=== PATIENT | female | born 1990 | race Hispanic/Latino ===

== ENCOUNTER 2018-03-30 06:20 | Emergency (ER) | payer OTHER, SELFPAY ==
[2018-03-30 06:33] VITALS: BP 109/65; PULSE 60; RESP 18; TEMP 36.6; O2SAT 97; BMI 23.0
--- NOTE | 2018-03-30 06:33 | DI.RAD.S_ITS ---
PROCEDURE: XR CHEST 2V INDICATIONS: persistent cough TECHNIQUE: 2 views of the chest were acquired. COMPARISON: [facility], , CHEST 1 VIEW, 10/06/2017, 10:55. [facility], , CHEST 2 VIEW, 12/24/2017, 10:33. FINDINGS: Surgical changes and devices: None. Lungs and pleura: No pleural effusions or pneumothorax. Lungs are clear. Mediastinum: Mediastinal contours are normal. Heart size is normal. Bones and chest wall: No suspicious bony abnormalities. Soft tissues appear unremarkable. IMPRESSION: No acute cardiopulmonary disease. Dictated by: Kira Lezama M.D. on 03/30/2018 at 7:41 Approved by: Kira Lezama M.D. on 03/30/2018 at 7:42
--- NOTE | 2018-03-31 22:15 | ED_ITS ---
HPI - URI/Sore Throat General Chief Complaint: Upper Respiratory Symptoms Stated Complaint: Coughing 2 weeks, awoke gasping for air Time Seen by Provider: 03/30/18 06:33 Source: patient Mode of arrival: ambulatory Limitations: no limitations History of Present Illness HPI Narrative: patient presents to the emergency department today with a chief complaint of a persistent cough for the past few weeks. She states that started soon after she started beeping and has been persistent ever since. She denies runny nose, sore throat or fever. She is not dizzy nor weak or lightheaded. MD Complaint: cough Onset (ago): week(s) Duration: constant Severity: moderate Relieving factors: nothing Exacerbating factors: nothing Description of mucous: clear Able to tolerate fluids by mouth: Yes Related Data Home Medications Medication Instructions Recorded Confirmed duloxetine [Cymbalta] 90 mg PO QDAY #0 02/17/17 ibuprofen 400 mg PO TID #0 12/24/17 Previous Rx's Medication Instructions Recorded metronidazole 500 mg PO Q12H #14 tab 01/11/18 nitrofurantoin monohyd/m-cryst 100 mg PO BID #14 cap 01/11/18 [Macrobid] albuterol sulfate 2 puff INHALATION Q4H PRN #1 each 03/30/18 azithromycin See Label Instructions .ROUTE 03/30/18 .COMPLEX #6 tab benzonatate [Tessalon Perles] 100 mg PO Q6H PRN #20 cap 03/30/18 prednisone 20 mg PO DAILY #5 tab 03/30/18 Allergies Allergy/AdvReac Type Severity Reaction Status Date / Time Penicillins [PENICILLINS] Allergy Unknown Verified 03/30/18 06:40 Review of Systems Review of Systems All systems reviewed & are unremarkable except as noted in HPI and below Constitutional Denies chills, Denies fever(s), Denies lethargy and Denies weakness ENT Ears, Nose, Mouth, and Throat: Denies change in voice, Denies neck pain and Denies sore throat Cardiovascular Denies dyspnea and Denies dyspnea on exertion Respiratory Reports cough, Denies dyspnea, Denies dyspnea on exertion and Reports wheezing Gastrointestinal Gastrointestinal: Denies abdominal pain, Denies change in bowel habits, Denies diarrhea, Denies nausea and Denies vomiting Musculoskeletal Denies neck pain Neurologic Denies confusion and Denies weakness Psychiatric Denies anxiety, Denies confusion, Denies depression, Denies homicidal ideation and Denies suicidal ideation Hematologic/Lymphatic Denies easy bruising Allergic/Immunologic Reports wheezing PFSH Social History Smoking Status: Current some day smoker Exam Initial Vital Signs Initial Vital Signs: Vital Signs Temperature 97.9 F 03/30/18 06:33 Pulse Rate 60 03/30/18 06:33 Respiratory Rate 18 03/30/18 06:33 Blood Pressure 109/65 03/30/18 06:33 Pulse Oximetry 97 03/30/18 06:33 Const General: cooperative and well developed Nutritional Appearance: well nourished Orientation: alert, awake, oriented x3 and not confused HENMT Head: normocephalic and atraumatic Ears: external ears normal and TM's normal bilaterally Nose: external nose normal and No nasal discharge Face and sinus: sinuses nontender, face symmetric, no sinus tenderness and No dry mucous membranes Mouth: oral mucosae normal and moist mucous membranes Teeth and gingiva: dentition normal Throat: tonsils normal and uvula midline Eyes General: appearance normal, both eyes and all related structures Eyelids: eyelids normal Conjunctivae: conjunctivae normal Sclera: sclerae normal Pupils: PERRL EOM: EOM intact bilaterally Neck Neck: normal visual inspection, trachea midline, No lymphadenopathy, No midline deformity and No JVD Lymphatic: No lymphedema Resp Effort & Inspection: normal respiratory effort, able to speak in complete sentences, no respiratory distress and no use of accessory muscles Auscultation: clear to auscultation bilaterally, no rales, no rhonchi and no wheezes Cardio Rate: regular rate Rhythm: regular rhythm Heart Sounds: no click, no gallops, no murmurs and no rubs Pulses: normal peripheral pulses GI Inspection: non-distended Palpation: soft, no hepatosplenomegaly, No guarding, No pulsatile mass and No tender Auscultation: normal bowel sounds Course Orders Ordered: ED Orders 03/30/18 06:33 XR chest 2V Stat Discharge Plan Departure Patient Disposition: Home, Self-Care Clinical Impression: Atypical pneumonia Discharge Date/Time: 03/30/18 07:11 Interventions: ED Discharge Assessment Last Done: 03/30/18 07:11 Instructions: Atypical Pneumonia Prescriptions: New albuterol sulfate 90 mcg/actuation aerosol powdr breath activated 2 puff INHALATION Q4H PRN (Reason: shortness of breath or wheezing) Qty: 1 RF : 0 azithromycin 250 mg tablet See Label Instructions .ROUTE .COMPLEX Qty: 6 RF: 0 benzonatate [Tessalon Perles] 100 mg capsule 100 mg PO Q6H PRN (Reason: cough) Qty: 20 RF: 0 prednisone 20 mg tablet 20 mg PO DAILY Qty: 5 RF: 0 No Action duloxetine [Cymbalta] 30 MG capsule,delayed release(DR/EC) 90 mg PO QDAY Qty: 0 RF: 0 ibuprofen 400 MG tablet 400 mg PO TID Qty: 0 RF: 0 metronidazole 500 MG tablet 500 mg PO Q12H Qty: 14 RF: 0 nitrofurantoin monohyd/m-cryst [Macrobid] 100 MG capsule 100 mg PO BID Qty: 14 RF: 0 Stand Alone Forms: Work/School Restrictions
== END 2018-03-30 07:11 | disposition home or self-care (01) ==
PROVIDERS: Emergency Provider Emergency Medicine
DX: J18.9 Pneumonia, unspecified organism (principal)
CPT/HCPCS: 71046; 99282; 99283

== ENCOUNTER 2018-06-25 01:00 | Emergency (ER) | payer OTHER, SELFPAY ==
[2018-06-25 01:05] VITALS: BP 123/75; PULSE 93; RESP 16; TEMP 36.4; O2SAT 100
--- NOTE | 2018-06-25 01:14 | DI.RAD.S_ITS ---
PROCEDURE: XR LUMBAR SPINE 2-3V INDICATIONS: LBP after lifting and feeling a pop TECHNIQUE: 3 views of the lumbar spine were acquired. COMPARISON: None. FINDINGS: Bones: 5 [id number] vertebrae are present. There is minimal retrolisthesis at L2-L3, L3-L4, and L4-L5. Disc spaces appear preserved. No vertebral body compression fractures. No suspicious bony lesions. Soft tissues: Overlying bowel gas pattern is normal. No suspicious soft tissue calcifications. IMPRESSION: 1. No acute fracture identified. 2. Minimal multilevel retrolisthesis of indeterminate clinical significance. Dictated by: Tano Ojeda M.D. on 06/25/2018 at 11:38 Approved by: Tano Ojeda M.D. on 06/25/2018 at 11:39
--- NOTE | 2018-06-25 01:14 | ED_ITS ---
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 Patient states that she has had left-sided lower back pain for couple days now. She states that she was in the gym today doing lifts and when she stood up she has sudden onset of bilateral lower back pain and felt and heard ?a pop? has pain radiating down both of her legs to just above her knees. No bowel symptoms. No bladder symptoms. No incontinence. Feels like she empties her bladder. No saddle anesthesia. No fevers. Related Data Home Medications Medication Instructions Recorded Confirmed duloxetine [Cymbalta] 90 mg PO QDAY #0 02/17/17 ibuprofen 400 mg PO TID #0 12/24/17 Previous Rx's Medication Instructions Recorded metronidazole 500 mg PO Q12H #14 tab 01/11/18 nitrofurantoin monohyd/m-cryst 100 mg PO BID #14 cap 01/11/18 [Macrobid] albuterol sulfate 2 puff INHALATION Q4H PRN #1 each 03/30/18 azithromycin See Label Instructions .ROUTE 03/30/18 .COMPLEX #6 tab benzonatate [Tessalon Perles] 100 mg PO Q6H PRN #20 cap 03/30/18 prednisone 20 mg PO DAILY #5 tab 03/30/18 Allergies Allergy/AdvReac Type Severity Reaction Status Date / Time Penicillins [PENICILLINS] Allergy Unknown Verified 03/30/18 06:40 Review of Systems Constitutional Denies chills and Denies fever(s) Cardiovascular Denies chest pain and Denies dyspnea Respiratory Denies dyspnea Gastrointestinal Gastrointestinal: Denies cramping, Denies diarrhea, Denies nausea and Denies vomiting Genitourinary Denies urinary frequency, Denies difficulty voiding, Denies post void dribbling , Denies dysuria, Denies flank pain, Denies urinary incontinence, Denies urinary hesitancy and Denies urinary urgency Musculoskeletal Reports back pain, Denies myalgias and Reports arthralgias (Right ankle) Integumentary/Breasts Denies lesions and Denies rash Neurologic Denies sensory deficit Hematologic/Lymphatic Denies easy bleeding and Denies easy bruising [facility] Medical History Healthy adult (Acute) Surgical History No history of previous surgery (Acute) Social History Smoking Status: Current some day smoker Exam Initial Vital Signs Initial Vital Signs: Vital Signs Temperature 97.6 F 06/25/18 01:05 Pulse Rate 93 H 06/25/18 01:05 Respiratory Rate 16 06/25/18 01:05 Blood Pressure 123/75 H 06/25/18 01:05 Pulse Oximetry 100 06/25/18 01:05 Const General: cooperative, healthy appearing, comfortable, well developed, well groomed and No acute distress Orientation: alert, awake and oriented x3 Resp Effort & Inspection: normal respiratory effort Skin Lesions: no lesions Rashes: no rashes Neuro General: alert, awake and oriented x3 Cognition: normal cognition Speech: speech normal Gait: normal gait Motor: muscle tone normal throughout Sensory Exam: no sensory deficits noted Extrem General: normal to inspection and capillary refill normal Psych Appearance: grossly normal and well kempt Course Orders Ordered: ED Orders 06/25/18 01:14 XR lumbar spine 2-3V Stat Discontinued Medications Hydrocodone Bitart/Acetaminophen (Vicodin Prepack) 1 bottle MISC SEEINSTR ONE Stop: 06/25/18 02:00 Cyclobenzaprine HCl (Flexeril 10 Mg Prepack) 1 bottle MISC SEEINSTR ONE Stop: 06/25/18 02:00 Ketorolac Tromethamine (Toradol) 30 mg IM NOW ONE Stop: 06/25/18 01:25 Last Admin: 06/25/18 01:30 Dose: 30 mg Vital Signs - 8 hr 06/25/18 01:05 Temperature 97.6 F Pulse Rate 93 H Respiratory Rate 16 Blood Pressure 123/75 H Pulse Oximetry 100 MDM - Back Pain/Injury Imaging Data Lumbar spine x-ray: Attestation: I personally reviewed and interpreted this imaging study as follows: My impression: No fractures, no dislocations, no gross deformity [facility] Narrative Medical decision making narrative: No fracture seen on the x-ray. Patient is neurovascularly intact. No red flag symptoms concerning for cauda equina. History is not consistent with fracture. Will hold on further workup for now. Patient was given Toradol here in the emergency department. Feel this is most likely musculoskeletal. Patient was given return precautions. She expressed understanding and agreement with plan. Discharge Plan Departure Patient Disposition: Home Clinical Impression: Lower back pain Instructions: Back Pain (Alternative Therapy), DI for Back Pain With Sciatica, Activity May Be Better then Rest for Low Back Pain Recovery Activity Restrictions/Additional Instructions: Take all the medications as directed. Contact your medical department on Tuesday for any work-related restrictions. Follow-up with your medical department. Return to the emergency department for any new or worsening symptoms. Recommend that you take the Motrin/ibuprofen at home every 8 hr with food. Prescriptions: No Action duloxetine [Cymbalta] 30 MG capsule,delayed release(DR/EC) 90 mg PO QDAY Qty: 0 RF: 0 ibuprofen 400 MG tablet 400 mg PO TID Qty: 0 RF: 0 metronidazole 500 MG tablet 500 mg PO Q12H Qty: 14 RF: 0 nitrofurantoin monohyd/m-cryst [Macrobid] 100 MG capsule 100 mg PO BID Qty: 14 RF: 0 albuterol sulfate 90 mcg/actuation aerosol powdr breath activated 2 puff INHALATION Q4H PRN (Reason: shortness of breath or wheezing) Qty: 1 RF : 0 azithromycin 250 mg tablet See Label Instructions .ROUTE .COMPLEX Qty: 6 RF: 0 benzonatate [Tessalon Perles] 100 mg capsule 100 mg PO Q6H PRN (Reason: cough) Qty: 20 RF: 0 prednisone 20 mg tablet 20 mg PO DAILY Qty: 5 RF: 0
[2018-06-25] MEDS: KETOROLAC 60 MG/2 ML VIAL 30 MG IM (01:30)
[2018-06-25] MEDS: CYCLOBENZAPRINE 10 MG PREPACK 1 BOTTLE MISC (02:05)
[2018-06-25] MEDS: HYDROCODONE/ACET 5/325 PREPACK 1 BOTTLE MISC (02:05)
[2018-06-25 02:06] VITALS: BP 113/73; PULSE 83; RESP 18; TEMP 36.6; O2SAT 100
== END 2018-06-25 02:14 | disposition home or self-care (01) ==
PROVIDERS: Emergency Provider Emergency Medicine
DX: M54.5 Low back pain (principal)
CPT/HCPCS: 72100; 96372; 99282; 99283; J1885

== ENCOUNTER 2018-07-18 08:43 | Emergency (ER) | payer OTHER, SELFPAY ==
[2018-07-18 09:06] VITALS: BP 114/80; PULSE 110; RESP 13; TEMP 36.9; O2SAT 99
[2018-07-18 09:44] VITALS: BP 111/72; PULSE 107; RESP 18; TEMP 37.1; O2SAT 98
--- NOTE | 2018-07-18 10:03 | ED.SKABFB ---
HPI - Skin/Abscess/Foreign Bdy General Chief complaint: Skin/Abscess/Foreign Body Stated complaint: 'CELLULITIS IN LEFT LEG' Time Seen by Provider: 07/18/18 09:26 Source: patient Mode of arrival: ambulatory Limitations: no limitations History of Present Illness HPI narrative: Patient is a 28-year-old female who presents with a left foot and leg rash. She feels like she has had body aches since last evening. She noticed a rash on her foot this morning she is so intense pain all up and down her leg and in her calf. She denies any recent traveling no history of blood clots no significant swelling of her legs. She denies any pruritus, no bites. She feels like it is cellulitis her and get cellulitis frequently MD complaint: rash Related Data Home Medications Medication Instructions Recorded Confirmed ibuprofen 400 mg PO PRN PRN #0 12/24/17 07/18/18 Previous Rx's Medication Instructions Recorded albuterol sulfate 2 puff INHALATION Q4H PRN #1 each 03/30/18 sulfamethoxazole-trimethoprim 1 tab PO BID 5 Days #14 tab 07/18/18 [Bactrim DS] Allergies Allergy/AdvReac Type Severity Reaction Status Date / Time Penicillins [PENICILLINS] Allergy Unknown Verified 03/30/18 06:40 Review of Systems Review of Systems GENERAL: Denies chills, fatigue, malaise, fever, sweats, travel HEENT: Denies sinus pain, ear pain, sore throat, difficulty swallowing, neck pain RESPIRATORY: Denies dyspnea, cough, wheezing, hemoptysis, sputum. CARDIOVASCULAR: Denies chest pain, palpitations, orthopnea, edema GASTROINTESTINAL: Denies nausea, vomiting, abdominal pain, diarrhea, constipation, melena. : Denies dysuria, frequency, incontinence, hematuria, urinary retention, flank pain. MUSCULOSKELETAL: Denies weakness, joint pain, or bony pain SKIN: See HPI NEUROLOGIC: Denies weakness, dizziness, headache, numbness, change in speech, confusion PSYCHIATRIC: No concerning psychosocial issues. 12 point review of systems is negative except for those stated above and HPI [facility] Social History Smoking Status: Current some day smoker Exam Initial Vital Signs Initial Vital Signs: Vital Signs Temperature 98.4 F 07/18/18 09:06 Pulse Rate 110 H 07/18/18 09:06 Respiratory Rate 13 07/18/18 09:06 Blood Pressure 114/80 07/18/18 09:06 Pulse Oximetry 99 07/18/18 09:06 GENERAL: Well-appearing, well-nourished and in no acute distress. HEENT: Head atraumatic,EOMI, pupils reactive, neck is supple no meningeal signs CARDIOVASCULAR: Regular rate and rhythm without murmurs, rubs or gallops. RESPIRATORY: Breath sounds equal bilaterally, no wheezes rales or rhonchi. ABDOMEN: Soft, nontender. Normoactive bowel sounds all 4 quadrants. No guarding or rebound. EXTREMITIES: Normal range of motion, no clubbing or edema. Neurovascularly intact. Bilateral foot swelling equal. Left calf tenderness no significant calf swelling NEUROLOGICAL: Alert and oriented x4.Normal gait and speech. SKIN: Left foot has erythematous circular papules with may be some mild streaking up penitentiary this chin.. No vesicles no petechiae no abscesses Scores Wells' Criteria for DVT Active Cancer (Treatment within 6 months): No Bedridden recently >3 days or major surgery within 4 weeks: No Calf Swelling >3cm compared to other leg: No Collateral (nonvericose) superficial veins present: No Entire leg swollen: No Localized tenderness along the deep vein system: No Pitting edema, confined to symtomatic leg: No Paralysis, paresis, or recent plaster immobilization of ext: No Previously documented DVT: No Alternative dx to DVT as likely or more likely: No Wells' criteria for DVT: 0 Course Orders Ordered: ED Orders 07/18/18 10:00 Basic Metabolic Panel Stat Complete Blood Count AUTO DIFF Stat D Dimer Stat Lactate (Lactic Acid) Stat 07/18/18 10:22 Blood Culture Stat Discontinued Medications Sodium Chloride (Normal Saline 0.9%) 1,000 mls @ 1,000 mls/hr IV BOLUS ONE Stop: 07/18/18 10:53 Last Infusion: 07/18/18 10:58 Dose: 0 mls/hr Admin: 07/18/18 10:05 Dose: 1,000 mls/hr Ketorolac Tromethamine (Toradol) 30 mg IV NOW ONE Stop: 07/18/18 09:56 Last Admin: 07/18/18 10:05 Dose: 30 mg Vital Signs - 8 hr 07/18/18 09:06 07/18/18 09:44 07/18/18 10:37 Temperature 98.4 F 98.8 F Pulse Rate 110 H 107 H 94 H Respiratory Rate 13 18 12 Blood Pressure 114/80 Blood Pressure [Left Arm] 111/72 117/72 Pulse Oximetry 99 98 98 MDM - Skin/Abscess/Foreign Bdy Lab Data Attestation: I reviewed the patient's lab results. Result diagrams: 07/18/18 10:00 07/18/18 10:00 Lab Results 07/18/18 07/18/18 07/18/18 Range/Units 10:00 10:00 10:00 WBC 9.9 (4.5-11.0) X10^3/uL RBC 4.54 (4.0-5.2) X10^6/uL Hgb 12.6 (12.0-16.0) g/dL Hct 36.8 (36-46) % MCV 81.1 (80-100) fL MCH 27.7 (26-34) PG MCHC 34.1 (30-36) % RDW 13.2 (11.6-14.8) % Plt Count 186 (150-400) X10^3/uL Neut % (Auto) 84.9 H (50-75) % Lymph % (Auto) 7.5 L (25-40) % [place] % (Auto) 6.8 (3-14) % Eos % (Auto) 0.5 L (2-4) % Baso % (Auto) 0.3 (0-2) % Neut # (Auto) 8400 H (8421-7778) /uL D-Dimer < 200 (<230) ng/mL Sodium 142 (137-145) mmol/L Potassium 3.8 (3.4-5.1) mmol/L Chloride 107 (98-107) mmol/L Carbon Dioxide 25 (22-32) mmol/L BUN 14 (7-17) mg/dL Creatinine 0.70 (0.52-1.04) mg/dL Estimated GFR > 60.0 (>60) mL/min BUN/Creatinine Ratio 20.0 (6-22) Glucose 101 H (70-100) mg/dL Lactate (0.7-2.1) mmol/L Calcium 9.2 (8.4-10.2) mg/dL 07/18/18 Range/Units 10:00 WBC (4.5-11.0) X10^3/uL RBC (4.0-5.2) X10^6/uL Hgb (12.0-16.0) g/dL Hct (36-46) % MCV (80-100) fL MCH (26-34) PG MCHC (30-36) % RDW (11.6-14.8) % Plt Count (150-400) X10^3/uL Neut % (Auto) (50-75) % Lymph % (Auto) (25-40) % [place] % (Auto) (3-14) % Eos % (Auto) (2-4) % Baso % (Auto) (0-2) % Neut # (Auto) (6447-7291) /uL D-Dimer (<230) ng/mL Sodium (137-145) mmol/L Potassium (3.4-5.1) mmol/L Chloride (98-107) mmol/L Carbon Dioxide (22-32) mmol/L BUN (7-17) mg/dL Creatinine (0.52-1.04) mg/dL Estimated GFR (>60) mL/min BUN/Creatinine Ratio (6-22) Glucose (70-100) mg/dL Lactate 0.8 (0.7-2.1) mmol/L Calcium (8.4-10.2) mg/dL MDM Narrative Medical decision making narrative: Patient's blood work is reviewed. No leukocytosis D-dimer is negative low risk for DVT as the more of cellulitis. Heart rate is also improved Discharge Plan Departure Patient Disposition: Home Clinical Impression: Cellulitis Discharge Date/Time: 07/18/18 11:11 Interventions: ED Discharge Assessment Last Done: 07/18/18 10:58 Instructions: DI for Cellulitis -- Adult Activity Restrictions/Additional Instructions: *You have been diagnosed with cellulitis left leg *What to do: Monitor redness, fever control *Continue to take medications as directed Septra 1 pill twice a day for 1 week-fax to [facility] in [place] *Follow up with your primary care provider in 2-3 days *Return to ER if you should have increasing redness, persistent fever or any new, worsening or concerning symptoms Prescriptions: New sulfamethoxazole-trimethoprim [Bactrim DS] 800-160 mg tablet 1 tab PO BID 5 Days Qty: 14 RF: 0 No Action ibuprofen 400 MG tablet 400 mg PO PRN PRN (Reason: Headache) Qty: 0 RF: 0 albuterol sulfate 90 mcg/actuation aerosol powdr breath activated 2 puff INHALATION Q4H PRN (Reason: shortness of breath or wheezing) Qty: 1 RF: 0 Referrals: [facility] [Provider Group] [facility] [Outside] Stand Alone Forms: Work/School Restrictions
[2018-07-18] MEDS: SODIUM CHLORIDE 0.9% 1,000 ML 1000 ML IV (10:05)
[2018-07-18] MEDS: KETOROLAC 60 MG/2 ML VIAL 30 MG IV (10:05)
[2018-07-18 10:10] LABS: Add Manual Diff / Slide Review NO; Basophils Percent Auto 0.3 % (0-2); Eosinophils Percent Auto 0.5 % (2-4); Hematocrit 36.8 % (36-46); Hemoglobin 12.6 g/dL (12.0-16.0); Lymphocytes Percent Auto 7.5 % (25-40); Mean Corpuscular HGB Conc 34.1 % (30-36); Mean Corpuscular Hemoglobin 27.7 PG (26-34); Mean Corpuscular Volume 81.1 fL (80-100); Monocytes Percent Auto 6.8 % (3-14); Neutrophils Absolute Auto 8400 /uL (3000-5900); Neutrophils Percent Auto 84.9 % (50-75); Platelet Count 186 X10^3/uL (150-400); Red Blood Cell Count 4.54 X10^6/uL (4.0-5.2); Red Cell Distribution Width 13.2 % (11.6-14.8); White Blood Cell Count 9.9 X10^3/uL (4.5-11.0)
[2018-07-18 10:28] LABS: Blood Urea Nitrogen 14 mg/dL (7-17); Calcium 9.2 mg/dL (8.4-10.2); Carbon Dioxide 25 mmol/L (22-32); Chloride 107 mmol/L (98-107); D Dimer < 200 ng/mL (<230); Estimated Glomerular Filt Rate > 60.0 mL/min (>60); Glucose 101 mg/dL (70-100); HEMOLYSIS < 15 (0-50); Lactate (Lactic Acid) 0.8 mmol/L (0.7-2.1); Potassium 3.8 mmol/L (3.4-5.1); Sodium 142 mmol/L (137-145)
[2018-07-18 10:37] VITALS: BP 117/72; PULSE 94; RESP 12; O2SAT 98
== END 2018-07-18 11:11 | disposition home or self-care (01) ==
PROVIDERS: Emergency Provider Emergency Medicine
DX: L03.116 Cellulitis of left lower limb (principal)
CPT/HCPCS: 36415; 36591; 80048; 83605; 85025; 85379; 87040; 96361; 96374; 99283; 99284; J1885

== ENCOUNTER 2018-12-24 13:16 | Emergency (ER) | payer OTHER, SELFPAY ==
[2018-12-24 13:20] VITALS: BP 110/70; PULSE 96; RESP 16; TEMP 36.5; O2SAT 100; BMI 21.1
[2018-12-24] MEDS: KETOROLAC 60 MG/2 ML VIAL IM (14:16)
--- NOTE | 2018-12-24 14:23 | ED_ITS ---
HPI - Extremity Problem <JERICHO Bright-BC - Last Filed: 12/24/18 15:31> General Chief complaint: Extremity Problem,Nontraumatic Stated complaint: STATES SHE HAS CELLULITIS Time Seen by Provider: 12/24/18 14:04 Source: patient Mode of arrival: ambulatory Limitations: no limitations History of Present Illness HPI Narrative: Patient is a 28-year-old female occasional smoker with a history of cellulitis who presents with chief complaint of redness pain and swelling of her right ft and leg. She was treated for cellulitis in July of last year. She denies any fevers nausea vomiting or diarrhea. She denies taking hormones or control. She denies any recent surgeries, long flights or smoking. She denies any falls or trauma. She states that the pain feels warm, but denies any itching. She denies any history of blood clots. She denies any shortness of breath. Related Data Home Medications Medication Instructions Recorded Confirmed ibuprofen 400 mg PO PRN PRN #0 12/24/17 07/18/18 Previous Rx's Medication Instructions Recorded albuterol sulfate 2 puff INHALATION Q4H PRN #1 each 03/30/18 naproxen 500 mg PO BID PRN #20 tab 12/24/18 sulfamethoxazole-trimethoprim 1 tab PO BID #14 tab 12/24/18 [Bactrim DS] Allergies Allergy/AdvReac Type Severity Reaction Status Date / Time Penicillins [PENICILLINS] Allergy Unknown Verified 12/24/18 13:20 Review of Systems <JERICHO Bright- - Last Filed: 12/24/18 15:31> Review of Systems GENERAL: Denies chills, fatigue, malaise, fever, sweats. HEENT: Denies sinus pain, ear pain, sore throat, difficulty swallowing, dizziness. RESPIRATORY: Denies dyspnea, cough, wheezing, hemoptysis, sputum. CARDIOVASCULAR: Denies chest pain, palpitations, orthopnea, edema, GASTROINTESTINAL: Denies nausea, vomiting, abdominal pain, diarrhea, constipation, melena. : Denies dysuria, frequency, incontinence, hematuria, urinary retention. MUSCULOSKELETAL: denies weakness, joint pain, or bony pain SKIN: See HPI NEUROLOGIC: Denies weakness, headache, numbness, change in speech, confusion, seizures, incoordination. PSYCHIATRIC: No concerning psychosocial issues. 12 point review of systems is negative except for those stated above PFSH <SORAIDA Bright - Last Filed: 12/24/18 15:31> Medical History Healthy adult (Acute) Surgical History No history of previous surgery (Acute) Social History Smoking Status: Current some day smoker Social History Smoking Status: Current some day smoker Exam <SORAIDA Bright - Last Filed: 12/24/18 15:31> Narrative Exam Narrative: GENERAL: This is a well-nourished, well-developed patient, No acute distress CARDIOVASCULAR: Regular rate and rhythm RESPIRATORY: no increased respiratory effort. No cough. No accessory muscle use. GASTROINTESTINAL: Abdomen soft, non-tender, nondistended. No hepato- splenomegaly, or palpable masses. No guarding. EXTREMITIES: Pain to palpation diffuse right foot. Positive pedal pulses right foot. Slight pedal swelling, on right side, no calf swelling on right side. BACK: Nontender without deformity or crepitance. No flank tenderness. NEURO: AOx3. SKIN: slight erythema and swelling noted on the top of right foot. Some erythematous pack pills of to top of calf. No streaking noted. Initial Vital Signs Initial Vital Signs: Vital Signs Temperature 97.7 F 12/24/18 13:20 Pulse Rate 96 H 12/24/18 13:20 Respiratory Rate 16 12/24/18 13:20 Blood Pressure 110/70 12/24/18 13:20 Pulse Oximetry 100 12/24/18 13:20 <Vanna Arellano DO - Last Filed: 12/25/18 20:05> Initial Vital Signs Initial Vital Signs: Vital Signs Temperature 97.7 F 12/24/18 13:20 Pulse Rate 96 H 12/24/18 13:20 Respiratory Rate 16 12/24/18 13:20 Blood Pressure 110/70 12/24/18 13:20 Pulse Oximetry 100 12/24/18 13:20 Scores <SORAIDA Bright - Last Filed: 12/24/18 15:31> Wells' Criteria for DVT Active Cancer (Treatment within 6 months): No Bedridden recently >3 days or major surgery within 4 weeks: No Calf Swelling >3cm compared to other leg: No Collateral (nonvericose) superficial veins present: No Entire leg swollen: No Localized tenderness along the deep vein system: No Pitting edema, confined to symtomatic leg: No Paralysis, paresis, or recent plaster immobilization of ext: No Previously documented DVT: No Alternative dx to DVT as likely or more likely: No Sergey criteria for DVT: 0 Course <SORAIDA Bright - Last Filed: 12/24/18 15:31> Orders Ordered: Discontinued Medications Ketorolac Tromethamine (Toradol) 60 mg IM NOW ONE Stop: 12/24/18 14:12 Last Admin: 12/24/18 14:16 Dose: 60 mg Vital Signs - 8 hr 12/24/18 13:20 12/24/18 15:15 Temperature 97.7 F Pulse Rate 96 H 92 H Respiratory Rate 16 20 Blood Pressure 110/70 101/72 Pulse Oximetry 100 99 <Vanna Arellano DO - Last Filed: 12/25/18 20:05> Orders Ordered: Discontinued Medications Ketorolac Tromethamine (Toradol) 60 mg IM NOW ONE Stop: 12/24/18 14:12 Last Admin: 12/24/18 14:16 Dose: 60 mg Vital Signs - 8 hr 12/24/18 13:20 12/24/18 15:15 Temperature 97.7 F Pulse Rate 96 H 92 H Respiratory Rate 16 20 Blood Pressure 110/70 101/72 Pulse Oximetry 100 99 MDM - Extremity (Nontraumatic) <SORAIDA Bright - Last Filed: 12/24/18 15:31> Lab Data Result diagrams: 12/24/18 14:25 12/24/18 14:25 Lab Results 12/24/18 12/24/18 12/24/18 Range/Units 14:25 14:25 14:25 WBC 7.9 (4.5-11.0) X10^3/uL RBC 4.68 (4.0-5.2) X10^6/uL Hgb 13.0 (12.0-16.0) g/dL Hct 39.0 (36-46) % MCV 83.3 (80-100) fL MCH 27.8 (26-34) PG MCHC 33.3 (30-36) % RDW 13.5 (11.6-14.8) % Plt Count 195 (150-400) X10^3/uL Neut % (Auto) 70.9 (50-75) % Lymph % (Auto) 16.1 L (25-40) % [place] % (Auto) 8.8 (3-14) % Eos % (Auto) 4.0 (2-4) % Baso % (Auto) 0.2 (0-2) % Neut # (Auto) 5600 (2341-7504) /uL Lymph # (Auto) 1300 (2249-8127) /uL [place] # (Auto) 700 (0-900) /uL Eos # (Auto) 300 (0-450) /uL Baso # (Auto) 0 (0-100) /uL D-Dimer < 200 (<230) ng/mL Sodium 139 (137-145) mmol/L Potassium 4.1 (3.4-5.1) mmol/L Chloride 103 (98-107) mmol/L Carbon Dioxide 27 (22-32) mmol/L BUN 13 (7-17) mg/dL Creatinine 0.60 (0.52-1.04) mg/dL Estimated GFR > 60.0 (>60) mL/min BUN/Creatinine Ratio 21.7 (6-22) Glucose 83 (70-100) mg/dL Calcium 9.3 (8.4-10.2) mg/dL Total Bilirubin 0.4 (0.2-1.3) mg/dL AST 18 (14-36) IU/L ALT 24 (9-52) IU/L Alkaline Phosphatase 56 (38-126) U/L Total Protein 7.4 (6.3-8.2) g/dL Albumin 4.4 (3.5-5.0) g/dL Globulin 3.0 (1.7-4.1) g/dL Albumin/Globulin Ratio 1.5 (1.0-2.8) MDM Narrative Medical decision making narrative: Patient is a 28-year-old female with history of cellulitis who presents believing she has cellulitis again. Given the unilateral slight swelling, I did obtain a D-dimer which was negative to rule out possibility of a DVT. She does not have an elevated white blood cell count does not have fever vomiting or diarrhea. Thus I will treat her at this point time with Bactrim. and discussed at length return precautions of fever, vomiting, diarrhea and signs of systemic illness. Patient no questions or concerns upon discharge. She was nontoxic appearing and hemodynamically stable throughout her stay in the emergency department. <Vanna Arellano, DO - Last Filed: 12/25/18 20:05> Lab Data Lab Results 12/24/18 12/24/18 12/24/18 Range/Units 14:25 14:25 14:25 WBC 7.9 (4.5-11.0) X10^3/uL RBC 4.68 (4.0-5.2) X10^6/uL Hgb 13.0 (12.0-16.0) g/dL Hct 39.0 (36-46) % MCV 83.3 (80-100) fL MCH 27.8 (26-34) PG MCHC 33.3 (30-36) % RDW 13.5 (11.6-14.8) % Plt Count 195 (150-400) X10^3/uL Neut % (Auto) 70.9 (50-75) % Lymph % (Auto) 16.1 L (25-40) % [place] % (Auto) 8.8 (3-14) % Eos % (Auto) 4.0 (2-4) % Baso % (Auto) 0.2 (0-2) % Neut # (Auto) 5600 (0536-8338) /uL Lymph # (Auto) 1300 (7065-4124) /uL [place] # (Auto) 700 (0-900) /uL Eos # (Auto) 300 (0-450) /uL Baso # (Auto) 0 (0-100) /uL D-Dimer < 200 (<230) ng/mL Sodium 139 (137-145) mmol/L Potassium 4.1 (3.4-5.1) mmol/L Chloride 103 (98-107) mmol/L Carbon Dioxide 27 (22-32) mmol/L BUN 13 (7-17) mg/dL Creatinine 0.60 (0.52-1.04) mg/dL Estimated GFR > 60.0 (>60) mL/min BUN/Creatinine Ratio 21.7 (6-22) Glucose 83 (70-100) mg/dL Calcium 9.3 (8.4-10.2) mg/dL Total Bilirubin 0.4 (0.2-1.3) mg/dL AST 18 (14-36) IU/L ALT 24 (9-52) IU/L Alkaline Phosphatase 56 (38-126) U/L Total Protein 7.4 (6.3-8.2) g/dL Albumin 4.4 (3.5-5.0) g/dL Globulin 3.0 (1.7-4.1) g/dL Albumin/Globulin Ratio 1.5 (1.0-2.8) Discharge Plan Departure Patient Disposition: Home Clinical Impression: Cellulitis Qualifiers: Site of cellulitis: extremity Site of cellulitis of extremity: lower extremity Laterality: right Qualified Code(s): L03.115 - Cellulitis of right lower limb Discharge Date/Time: 12/24/18 15:16 Interventions: ED Discharge Assessment Last Done: 12/24/18 15:15 Instructions: DI for Cellulitis -- Adult Activity Restrictions/Additional Instructions: I am starting on an antibiotic for cellulitis. Please start taking the naproxen tonight if you need it. Do not combine it with other NSAIDs. Monitor for fever, vomiting, diarrhea and signs of systemic illness that we discussed. Please follow-up if any of these occur. Follow up with primary care provider as well. Please rest your leg. Prescriptions: New sulfamethoxazole-trimethoprim [Bactrim DS] 800-160 mg tablet 1 tab PO BID Qty: 14 RF: 0 naproxen 500 mg tablet 500 mg PO BID PRN (Reason: pain) Qty: 20 RF: 0 No Action ibuprofen 400 MG tablet 400 mg PO PRN PRN (Reason: Headache) Qty: 0 RF: 0 albuterol sulfate 90 mcg/actuation aerosol powdr breath activated 2 puff INHALATION Q4H PRN (Reason: shortness of breath or wheezing) Qty: 1 RF: 0 Referrals: Manny Boogie [Primary Care Provider] - <Vanna Arellano DO - Last Filed: 12/25/18 20:05> Cosign ED Attending Cosignature Attestation: I was immediately available in the department for consultation. Documentation has been reviewed. I agree with a ssessment and plan.
[2018-12-24 14:33] LABS: Add Manual Diff / Slide Review NO; Basophils Absolute Auto 0 /uL (0-100); Basophils Percent Auto 0.2 % (0-2); Eosinophils Absolute Auto 300 /uL (0-450); Lymphocytes Absolute Auto 1300 /uL (1100-4500); Lymphocytes Percent Auto 16.1 % (25-40); Mean Corpuscular HGB Conc 33.3 % (30-36); Mean Corpuscular Hemoglobin 27.8 PG (26-34); Mean Corpuscular Volume 83.3 fL (80-100); Monocytes Absolute Auto 700 /uL (0-900); Monocytes Percent Auto 8.8 % (3-14); Neutrophils Absolute Auto 5600 /uL (1500-7000); Neutrophils Percent Auto 70.9 % (50-75); Platelet Count 195 X10^3/uL (150-400); Red Blood Cell Count 4.68 X10^6/uL (4.0-5.2); Red Cell Distribution Width 13.5 % (11.6-14.8); White Blood Cell Count 7.9 X10^3/uL (4.5-11.0)
[2018-12-24 14:41] LABS: D Dimer < 200 ng/mL (<230)
[2018-12-24 14:42] LABS: Alanine Aminotransferase 24 IU/L (9-52); Albumin 4.4 g/dL (3.5-5.0); Albumin Globulin Ratio 1.5 (1.0-2.8); Alkaline Phosphatase 56 U/L (38-126); Aspartate Aminotransferase 18 IU/L (14-36); BUN Creatinine Ratio 21.7 (6-22); Bilirubin Total 0.4 mg/dL (0.2-1.3); Blood Urea Nitrogen 13 mg/dL (7-17); Calcium 9.3 mg/dL (8.4-10.2); Carbon Dioxide 27 mmol/L (22-32); Chloride 103 mmol/L (98-107); Estimated Glomerular Filt Rate > 60.0 mL/min (>60); Glucose 83 mg/dL (70-100); HEMOLYSIS < 15 (0-50); Potassium 4.1 mmol/L (3.4-5.1); Sodium 139 mmol/L (137-145); Total Protein 7.4 g/dL (6.3-8.2)
[2018-12-24 15:15] VITALS: BP 101/72; PULSE 92; RESP 20; O2SAT 99
== END 2018-12-24 15:16 | disposition home or self-care (01) ==
PROVIDERS: Emergency Provider Nurse Practitioner Family; PCP Family Medicine
DX: L03.115 Cellulitis of right lower limb (principal)
CPT/HCPCS: 36415; 80053; 85025; 85379; 99282; 99283; J1885

== ENCOUNTER 2019-02-07 08:22 | Emergency (ER) | payer OTHER, SELFPAY ==
[2019-02-07 08:32] VITALS: BP 108/79; PULSE 98; RESP 18; TEMP 36.8; O2SAT 98; BMI 22.4
[2019-02-07] MEDS: IBUPROFEN 400 MG TABLET 800 MG PO (09:10)
[2019-02-07] MEDS: ACETAMINOPHEN 325 MG TABLET 650 MG PO (09:10)
[2019-02-07] MEDS: MAG HYDROX/ALUMINUM/SIMETH SUS 20 ML, LIDOCAINE VISCOUS 2% 15 ML PO (09:11)
[2019-02-07] MEDS: ONDANSETRON 4 MG ODT SL (09:12)
[2019-02-07 10:02] LABS: Strep Grp A by PCR Rapid Negative
--- NOTE | 2019-02-07 10:05 | ED_ITS ---
HPI - URI/Sore Throat General Chief Complaint: Upper Respiratory Symptoms Stated Complaint: possible strep, sore throat, white spots in throa Time Seen by Provider: 02/07/19 08:46 Source: patient Mode of arrival: ambulatory Limitations: no limitations History of Present Illness HPI Narrative: Patient comes to the emergency department complaining of sore throat since yesterday morning. She states she has noticed some white spots in the back of her throat, and that she gets strep every year. She states that it has hurt to swallow. She denies fevers, but states ?I never get fevers no matter how sick I am.? He patient states she has had a mild cough and rhinorrhea. She denies vomiting though she does note that she has been nauseated. No diarrhea. Patient denies shortness of breath or chest pain. No abdominal pain. She is not known to be , and states she just started her period today. She states that her coworkers have also been sick with similar illnesses. Related Data Home Medications Medication Instructions Recorded Confirmed ibuprofen 400 mg PO PRN PRN #0 12/24/17 07/18/18 Previous Rx's Medication Instructions Recorded albuterol sulfate 2 puff INHALATION Q4H PRN #1 each 03/30/18 naproxen 500 mg PO BID PRN #20 tab 12/24/18 sulfamethoxazole-trimethoprim 1 tab PO BID #14 tab 12/24/18 [Bactrim DS] ondansetron 4 mg PO QID PRN #7 tab 02/07/19 Allergies Allergy/AdvReac Type Severity Reaction Status Date / Time Penicillins [PENICILLINS] Allergy Unknown Verified 12/24/18 13:20 Review of Systems Constitutional Denies chills, Denies fever(s), Denies lethargy and Denies weakness Eyes Denies change in vision, Denies eye discharge, Denies irritation and Denies loss of vision ENT Ears, Nose, Mouth, and Throat: Denies change in voice, Reports nasal congestion, Denies neck pain and Reports sore throat Cardiovascular Denies chest pain, Denies irregular heart rhythm, Denies lightheadedness, Denies palpitations, Denies dyspnea, Denies dyspnea on exertion and Denies orthopnea Respiratory Reports cough (Mild, nonproductive), Denies dyspnea, Denies dyspnea on exertion and Denies wheezing Gastrointestinal Gastrointestinal: Denies abdominal pain, Denies change in bowel habits, Denies diarrhea, Denies nausea and Denies vomiting Genitourinary Denies hematuria, Denies flank pain, Denies urinary incontinence and Denies urinary urgency Musculoskeletal Denies neck pain Integumentary/Breasts Denies pruritus, Denies erythema, Denies rash and Denies wounds Neurologic Denies confusion, Denies loss of vision and Denies weakness Psychiatric Denies anxiety, Denies confusion, Denies depression, Denies homicidal ideation and Denies suicidal ideation Endocrine Denies palpitations Hematologic/Lymphatic Denies easy bruising Allergic/Immunologic Denies wheezing [facility] Medical History Healthy adult (Acute) Surgical History No history of previous surgery (Acute) Social History Smoking Status: Current some day smoker Social History Smoking Status: Current some day smoker Exam Initial Vital Signs Initial Vital Signs: Vital Signs Temperature 98.3 F 02/07/19 08:32 Pulse Rate 98 H 02/07/19 08:32 Respiratory Rate 18 02/07/19 08:32 Blood Pressure 108/79 02/07/19 08:32 Pulse Oximetry 98 02/07/19 08:32 Const General: cooperative and well developed Nutritional Appearance: well nourished Orientation: alert, awake, oriented x3 and not confused [facility] Head: normocephalic and atraumatic Ears: external ears normal Nose: external nose normal and No nasal discharge Face and sinus: face symmetric and No dry mucous membranes Mouth: oral mucosae normal and moist mucous membranes Teeth and gingiva: dentition normal Throat: uvula midline and abnormal tonsil (Normal color; patient has white lesions on her tonsils bilaterally. ) bilaterally (White lesions only; no exudate) Eyes General: appearance normal, both eyes and all related structures Eyelids: eyelids normal Conjunctivae: conjunctivae normal Sclera: sclerae normal Pupils: PERRL EOM: EOM intact bilaterally Neck Neck: normal visual inspection, trachea midline, No lymphadenopathy, No midline deformity and No JVD Lymphatic: No lymphadenopathy Chest Chest: normal inspection of the chest Resp Effort & Inspection: normal respiratory effort, able to speak in complete sentences, no respiratory distress and no use of accessory muscles Auscultation: clear to auscultation bilaterally, no rales, no rhonchi and no wheezes Cardio Rate: regular rate Rhythm: regular rhythm Heart Sounds: no click, no gallops, no murmurs and no rubs Pulses: normal peripheral pulses GI Inspection: non-distended Palpation: soft, no hepatosplenomegaly, No guarding, No pulsatile mass and No tender Auscultation: normal bowel sounds Back/Spine/Pelvis Back: No CVA tenderness Cervical Spine: cervical ROM normal and No pain with cervical ROM Thoracic/Lumbar Spine: thoracic and lumbar spine normal to inspection Skin General: no rashes or lesions noted, No jaundice and No petechiae Neuro General: alert, oriented x3, gait normal and no focal motor deficits Speech: speech normal Extrem General: full ROM, no clubbing, cyanosis or edema, no pedal edema and no calf tenderness Psych Appearance: well kempt Mental Status: mental status grossly normal Attitude: cooperative Thought Content: normal and suicidality Judgment: judgment good Course Course Narrative: Patient remained stable throughout her stay in the emergency department. She was treated symptomatically with GI cocktail, Zofran, ibuprofen, and Tylenol. Rapid strep was negative. I did explain to the patient the most likely, she has a viral syndrome causing her symptoms, and this will resolve on its own. We have discussed symptomatic treatment home, as well as the usual indications for return. Orders Ordered: ED Orders 02/07/19 09:38 Strep Grp A by PCR Rapid Stat Discontinued Medications Acetaminophen (Tylenol) 650 mg PO NOW ONE Stop: 02/07/19 09:03 Last Admin: 02/07/19 09:10 Dose: 650 mg Al Hydrox/Mg Hydrox/Simethicone 20 ml/ Lidocaine HCl 15 ml 0 ml PO NOW ONE Stop: 02/07/19 09:03 Last Admin: 02/07/19 09:11 Dose: 20 ml Ibuprofen (Advil) 800 mg PO NOW ONE Stop: 02/07/19 09:03 Last Admin: 02/07/19 09:10 Dose: 800 mg Ondansetron HCl (Zofran Odt) 4 mg SL NOW ONE Stop: 02/07/19 09:03 Last Admin: 02/07/19 09:12 Dose: 4 mg Vital Signs - 8 hr 04/03/19 08:32 02/07/19 10:18 Temperature 98.3 F 98 F Pulse Rate 98 H 74 Respiratory Rate 18 16 Blood Pressure 108/79 Blood Pressure [Right Arm] 107/73 Pulse Oximetry 98 98 MDM - URI/Sore Throat Medical Records Attestation: I reviewed the patient's medical records. Lab Data Attestation: I reviewed the patient's lab results. Lab Results 02/07/19 Range/Units 09:38 Group A Strep (PCR) Negative Discharge Plan Departure Patient Disposition: Home Clinical Impression: Upper respiratory infection Qualifiers: URI type: unspecified viral URI Qualified Code(s): J06.9 - Acute upper respiratory infection, unspecified Pharyngitis Qualifiers: Pharyngitis/tonsillitis etiology: other specified organisms Qualified Code(s): J02.8 - Acute pharyngitis due to other specified organisms Discharge Date/Time: 02/07/19 10:23 Interventions: ED Discharge Assessment Last Done: 02/07/19 10:23 Instructions: DI for Viral Upper Respiratory Infection -- Adult, DI for Viral Pharyngitis Activity Restrictions/Additional Instructions: Your strep test is negative. You most likely have one of the many viruses that are going around right now, which can cause a very sore throat, among other symptoms. You may take ibuprofen and Tylenol to help with this discomfort. Additionally, you may take the medicine that has been prescribed for nausea. Prescriptions: New ondansetron 4 mg tablet,disintegrating 4 mg PO QID PRN (Reason: nausea and vomiting) Qty: 7 RF: 0 No Action ibuprofen 400 MG tablet 400 mg PO PRN PRN (Reason: Headache) Qty: 0 RF: 0 albuterol sulfate 90 mcg/actuation aerosol powdr breath activated 2 puff INHALATION Q4H PRN (Reason: shortness of breath or wheezing) Qty: 1 RF: 0 sulfamethoxazole-trimethoprim [Bactrim DS] 800-160 mg tablet 1 tab PO BID Qty: 14 RF: 0 naproxen 500 mg tablet 500 mg PO BID PRN (Reason: pain) Qty: 20 RF: 0 Referrals: Manny Boogie [Primary Care Provider] - Stand Alone Forms: Work/School Release
[2019-02-07 10:18] VITALS: BP 107/73; PULSE 74; RESP 16; TEMP 36.6; O2SAT 98
== END 2019-02-07 10:23 | disposition home or self-care (01) ==
PROVIDERS: Emergency Provider Emergency Medicine; PCP Family Medicine
DX: J06.9 Acute upper respiratory infection, unspecified (principal)
CPT/HCPCS: 87651; 99282; 99283